=== PATIENT | male | born 1960 | race Caucasian/White ===

== ENCOUNTER 2023-04-27 06:46 | Inpatient (IN) ==
--- NOTE | 2023-04-27 07:10 | Emergency Department Note ---
Impression & Plan Influenza A, Syncope, Nasal fracture, Hypoxia, Closed head injury ED Provider Note Name: SORAYA DIGGS Age: 62 Sex: Male Arrives Via: Ambulance Informant: Patient, , EMS ED Provider: Nehemias Power MD Chief Complaint: Syncope Impression: As per impressions above Medical Decision Making: Healthy 62-year-old gentleman without significant past medical history arrives for evaluation after 2 syncopal episodes this evening. Did strike his nose on what they believed to be a magazine rack. Abrasion over the nose cleaned and does not require sutures. Will dress with bandage. Discussed antibiotics given fracture underneath. CT of the head and cervical spine without acute traumatic findings other than nasal fracture. Chest x-ray mild viral pattern but no lobar infiltrate. Influenza A is positive. Troponin is unremarkable. EKG looks good. Dimer is mildly elevated thus CT of the chest was obtained. No PE noted. Laboratory workup otherwise is unremarkable. Patient is moderately hypoxic on room air. In the setting of multiple syncopal events, mild hypoxia, influenza A he will require hospitalization. Discussed with hospitalist. Suggested antibiotics given the nasal laceration with fracture underneath. No active bleeding no evidence of septal hematoma thus I do not feel that ENT is emergently necessary at this time. Of note tetanus vaccination is up-to-date per patient and Triage/Nursing Notes reviewed by Me Differential:Vasovagal event, dehydration, infection, hypoglycemia, electrolyte abnormalities, cardiac sources, intracerebral event, pulmonary embolism, seizure, toxicologic, neurologic, as well as other pathologies. Vital Signs: reviewed and remarkable for hypoxia on room air Interventions: Tamiflu p.o., normal saline bolus 1 L IV, Unasyn 3 g IV Patient is not septic. Labs:ED labs Reviewed by me and remarkable for influenza A positive, D-dimer elevated. Imagin view chest x-ray as per my interpretation mild viral pattern no congestive failure, lobar infiltrate or effusion appreciated. CT of the head without contrast as per my informal interpretation reveals no intracranial hemorrhage or mass effect. Nasal bridge fracture with moderate displacement. Confirmed by radiologist. CT of the cervical spine without contrast as per my informal interpretation reveals no fracture no dislocation. Confirmed by radiologist. CT of the chest PE study. As per my informal interpretation there is no aortic dissection, PE, pneumothorax. Confirmed by radiologist. EKG:As per my interpretation. Indication syncope. Normal sinus rhythm at 73 bpm QTc of 409. There is no ectopy nor ischemia appreciated. Cardiac/Tele Monitoring: Cardiac Monitoring: An Order was placed for continuous cardiac monitoring. The monitor shows a rate of 70 with a normal sinus rhythm. Consults:[facility] Plan: Disposition:Hospitalization. Condition: Good History of Present Illness: 62-year-old male arrives following an episode of syncope. Patient states he was not feeling well the last 2 days. Mild joint aches and lack of appetite. Yesterday was not feeling well and thus did not eat dinner. States he had gotten up to go to the bathroom around midnight and passed out. He got himself up and went to bed but then again after getting up in the morning he fell again and was unconscious briefly. heard him fall and came to find him. He is awake mildly confused but came to pretty quickly. Abrasion to bridge of nose with mild bleeding. Patient states no known sick contacts. He does work on car engines but does not have any concerns that he had any exposures or carbon monoxide poisoning. Denies any specific headache, neck pain, chest pain, shortness of breath abdominal pain, urinary/bowel symptoms, nausea, vomiting or other concerning signs or symptoms. He has not been having any palpitations or lightheadedness the last few days. He has no previous cardiac history. He has no history of DVT or PE. He has no recent travel. Per EMS patient's oxygen was in the low 80s and he started on 2 L nasal cannula. On arrival he was noted to still be hypoxic on room air with O2 sats of 86%. Patient denies any shortness of breath. Past Medical History: No significant past medical history Home Medications:None Allergies:ndka Vitals:Blood Pressure: 120/68, Pulse 74, RR 18, T 37.8C, O2 86% on RA Physical Exam: GENERAL: Patient is tired appearing and in minimal distress. HEAD: AT/NC NECK: No TTP though notes discomfort lower left neck posteriorly FACE: Abrasion mild bleeding over bridge of nose. Dried blood in bilateral nares. RESPIRATORY: No dyspnea. Clear to auscultation and equal bilaterally. CARDIOVASCULAR: Regular rate and rhythm.No murmur appreciated. GASTROINTESTINAL: Abdomen soft, non-tender, no peritonitis. EXTREMITIES: Normal motion all extremities, no cyanosis, no edema. NEUROLOGIC: Alert and oriented. No focal neurologic deficits appreciated SKIN: No rash, no jaundice, no diaphoresis. PSYCH: Appropriate GCS: 15 ED Course: Times/Reassessments: Patient states he actually feels much better some IV fluids. Continuing to need some nasal cannula O2. Comfortable plan for hospitalization Nehemias Power MD Past Med/Surg History Medical History No significant past medical history Surgical History No significant past surgical history Social History Smoking Status: Never smoker Tobacco Type: Cigarettes Preferred Language: Spanish marital status: Current Living Situation: Spouse current occupational status: employed Feels Safe at Home: Yes Allergies Allergies Allergy/AdvReac Type Severity Reaction Status Date / Time No Known Allergies Allergy Verified 04/24/20 10:53 Home Meds Home Medications Medication Instructions Recorded Confirmed Vitamin D3 1 tab PO DAILY 04/27/23 04/27/23 [id number] 7.5 See Rx Instructions .Route 04/27/23 04/27/23 mg-60 [id number] oral liqd .COMPLEX PRN Other multivitamin 1 tab PO DAILY 04/27/23 04/27/23 Results & Data (ED) Vital Signs Vital Signs - 24 hr 04/27/23 06:54 04/27/23 07:06 04/27/23 08:06 Temperature 37.8 C H Temperature Source Oral Pulse Rate 74 67 Pulse Rate [Right Finger] Pulse Rhythm Pulse Rhythm [Right Finger] Pulse Strength [Right Finger] Respiratory Rate 18 Respiratory Effort / Characteristics Respiratory Depth Respiratory Pattern Blood Pressure 120/68 Blood Pressure [Right Arm] Blood Pressure Mean 85 Blood Pressure Mean [Right Arm] Blood Pressure Position [Right Arm] Pulse Oximetry 96 87 L Oxygen Delivery Method Nasal Cannula Room Air Oxygen Flow Rate 2 Sepsis Recent Fever Within 48 Hours No Sepsis New/Unexplained Change in Mental Status No Sepsis Action Taken by Nursing No Action Required 04/27/23 08:36 04/27/23 08:36 Temperature Temperature Source Pulse Rate 67 Pulse Rate [Right Finger] 66 Pulse Rhythm Regular Pulse Rhythm [Right Finger] Regular Pulse Strength [Right Finger] Normal Respiratory Rate 17 17 Respiratory Effort / Characteristics Non-Labored Spontaneous Respiratory Depth Normal Respiratory Pattern Regular Blood Pressure Blood Pressure [Right Arm] 171/95 H Blood Pressure Mean Blood Pressure Mean [Right Arm] 120 Blood Pressure Position [Right Arm] Lying Pulse Oximetry 98 98 Oxygen Delivery Method Nasal Cannula Room Air Oxygen Flow Rate 2 2 Sepsis Recent Fever Within 48 Hours Sepsis New/Unexplained Change in Mental Status Sepsis Action Taken by Nursing Laboratory Data 04/27/23 06:55 04/27/23 06:55 Lab Results 04/27/23 04/27/23 04/27/23 Range/Units 06:55 07:30 07:33 WBC 6.39 (4.8-10.8) K/ul RBC 5.01 (4.70-6.10) M/uL Hgb 15.4 (14.0-18.0) g/dl Hct 44.5 (42.0-52.0) % MCV 88.8 (80.0-100.0) fL MCH 30.7 (25.0-34.0) pg MCHC 34.6 (32.0-36.0) g/dL RDW Std Deviation 37.9 (36.4-46.3) fL RDW Coeff of Stephen 11.8 (11.5-14.5) % Plt Count 196 (130-400) K/uL MPV 9.5 (9.4-12.4) fL Immature Gran % (Auto) 0.2 % Neut % (Auto) 84.3 % Lymph % (Auto) 6.6 % [place] % (Auto) 8.6 % Eos % (Auto) 0.0 % Baso % (Auto) 0.3 % Neut # (Auto) 5.39 (1.40-6.50) K/uL Lymph # (Auto) 0.42 L (1.20-3.40) K/uL Oldham # (Auto) 0.55 (0.11-0.59) K/uL Eos # (Auto) 0.00 (0.00-0.50) K/uL Baso # (Auto) 0.02 (0.00-0.20) K/uL Immature Gran # (Auto) 0.01 (0.01-0.20) K/uL D-Dimer 710 H* (0-500) ug/L FEU Sodium 138 (136-145) mmol/L Potassium 4.2 (3.5-5.1) mmol/L Chloride 103 (98-107) mmol/L Carbon Dioxide 29 (21-32) mmol/L Anion Gap 6 (3-11) BUN 14 (6-23) mg/dl Creatinine 1.08 (0.6-1.4) mg/dl Est Cr Clr Drug Dosing 71.8 ml/min Est GFR ( Amer) 85.4 ml/min Est GFR (Non-Af Amer) 73.7 ml/min BUN/Creatinine Ratio 13.0 (10-20) Glucose 141 H (70-99(Fasting)) mg/dl Lactate 1.2 (0.4-2.0) mmol/L Calcium 8.7 (8.6-10.3) mg/dl Magnesium 1.9 (1.7-2.4) mg/dl Total Bilirubin 0.5 (0.2-1.0) mg/dl Direct Bilirubin 0.1 (0-0.2) mg/dl AST 23 (13-39) U/L ALT 32 (7-52) U/L Alkaline Phosphatase 55 (34-104) U/L Troponin I High Sens 3.7 (0-20) pg/ml Total Protein 6.9 (6.0-8.3) gm/dl Albumin 4.4 (3.4-5.0) gm/dl Procalcitonin < 0.05 (0-0.5) ng/ml SARS-CoV-2 (PCR) NEGATIVE (Negative) Influenza Type A (PCR) Positive A* (Neg) Influenza Type B (PCR) Negative (Neg) RSV (RT-PCR) Negative (Neg) Administered Medications Discontinued Medications Sodium Chloride (Nss) 1,000 mls @ 999 mls/hr IV .Q1H1M YAQUELIN Stop: 04/27/23 08:15 Last Infusion: 04/27/23 10:30 Dose: Infused Documented By: Admin: 04/27/23 08:02 Dose: 999 mls/hr Documented By: EVIN Ampicillin Sodium/Sulbactam Sodium 3,000 mg/ Sodium Chloride 100 mls @ 200 mls/hr IV NOW STA Stop: 04/27/23 09:18 Last Infusion: 04/27/23 11:34 Dose: Infused Documented By: Admin: 04/27/23 10:23 Dose: 200 mls/hr Documented By: EVIN Ioversol (Optiray 320 125ml) 115 ml IV ONCE ONE Stop: 04/27/23 09:08 Last Admin: 04/27/23 09:08 Dose: 115 ml Documented By: JATIN Oseltamivir Phosphate (Oseltamivir Phosphate 75 Mg Cap) 75 mg PO NOW STA; Protocol Stop: 04/27/23 08:54 Last Admin: 04/27/23 09:36 Dose: 75 mg Documented By: EVIN Imaging Data Radiologist's Impression: Chest X-Ray 04/27/23 07:06 XR chest 1V portable CLINICAL HISTORY: Sepsis. COMPARISON STUDY: Chest radiograph April 24, 2020. FINDINGS: Lung volumes are normal. Lungs are clear. Airspace opacities on prior chest radiograph of April 24, 2020 have resolved. There is no pneumothorax or pleural effusion. Cardiac size is normal. Mediastinal contours are normal. There is no evidence for pulmonary edema. IMPRESSION: No acute cardiopulmonary findings. ACT 112: Negative or not required by law. Electronically signed by: Migue Garcia M.D. 04/27/2023 7:[address] 04/27/23 07:10 CT OF THE CERVICAL SPINE WITHOUT CONTRAST CLINICAL HISTORY: Head trauma with lower posterior neck pain COMPARISON STUDY: Neck CT August 27, 2019. TECHNIQUE: Helical axial images of the cervical spine were obtained without IV contrast. Sagittal and coronal reconstructions were viewed. Automated exposure control was utilized for the study. A dose lowering technique was utilized adhering to the principles of ALARA. FINDINGS: Alignment of the cervical spine is anatomic. Vertebral body heights are maintained. No acute cervical spine fracture or subluxation is present. There is no prevertebral edema. Facet joints are intact. There is moderate multilevel facet arthrosis and degenerative disc disease within the cervical spine. This includes anterior osteophytosis within the cervical spine. Lucencies within anterior osteophytes were present on prior CT of August 27, 2019. IMPRESSION: No acute cervical spine fracture or subluxation. ACT 112: Negative or not required by law. Electronically signed by: Migue Garcia M.D. 04/27/2023 7:[address] 04/27/23 07:10 CT OF THE HEAD WITHOUT CONTRAST CLINICAL HISTORY: Syncope with head injury COMPARISON STUDY: Head CT January 08, 2008. Facial bone CT August 28, 2019. TECHNIQUE: Helical axial images of the head were obtained without IV contrast. Automated exposure control was utilized for the study. A dose lowering technique was utilized adhering to the principles of ALARA. FINDINGS: No acute intracranial hemorrhage, midline shift or mass effect is present. The ventricular system is unremarkable. The basal cisterns are patent. No extra-axial collections are present. There are no findings to suggest acute dural sinus thrombosis or acute territorial infarct. There is no acute calvarial fracture. Nasal contusion is noted with soft tissue gas within the nose. There is an acute comminuted moderately displaced right nasal bone fracture. There is an acute comminuted nondisplaced left nasal bone fracture. IMPRESSION: 1. No acute intracranial findings. 2. No calvarial fracture. 3. Nasal contusion and laceration. Comminuted bilateral nasal bone fractures. The right nasal bone fracture is moderately displaced. ACT 112: Negative or not required by law. Electronically signed by: Migue Garcia M.D. 04/27/2023 7:48 AM Chest CTA 04/27/23 08:49 CT ANGIOGRAPHY OF THE CHEST, PULMONARY EMBOLUS PROTOCOL CLINICAL HISTORY: Syncope, hypoxia, elevated Dimer. Evaluate for pulmonary embolus. COMPARISON STUDY: Chest radiograph April 24, 2020 and April 27, 2023 at 7:24 AM. TECHNIQUE: Following IV administration of 115 mL of Optiray, helical axial images of the chest were obtained utilizing the pulmonary embolus protocol. Maximal intensity projections and sagittal and coronal reformats were viewed on an independent 3D workstation. IV contrast was administered without complication. Automated exposure control was utilized for the study. A dose lowering technique was utilized adhering to the principles of ALARA. CT DOSE: 891.45 mGy.cm FINDINGS: No pulmonary emboli are identified. There is no thoracic aortic dissection. Size of the heart is within normal limits. There is no pericardial effusion. Groundglass opacities and linear densities within the lungs favor atelectasis. There is no consolidation to suggest pneumonia. No acute fractures within the visualized bony thorax are present. There is hepatic steatosis. A 2.8 cm lobulated water attenuation segment 6 hepatic lesion likely reflects a cyst. IMPRESSION: 1. No pulmonary emboli identified. 2. No acute intrathoracic findings. ACT 112: Negative or not required by law. Electronically signed by: Migue Garcia M.D. 04/27/2023 9:26 AM Discharge Plan Visit Data Chief Complaint: Syncope Stated Complaint: SYNCOPE/RESPIRATORY SYMPTOMS ED Provider: Nehemias Power Discharge Problem: Influenza A, Syncope, Nasal fracture, Hypoxia, Closed head injury Discharge Instructions Interventions: ED Discharge Assessment Last Done: 04/27/23 13:01 Discharge Problem: Syncope Qualifiers: Syncope type: unspecified Qualified Code(s): R55 - Syncope and collapse Nasal fracture Qualifiers: Encounter type: initial encounter Fracture type: open Qualified Code(s): S 02.2XXB - Fracture of nasal bones, initial encounter for open fracture Closed head injury Qualifiers: Encounter type: initial encounter Qualified Code(s): S09.90XA - Unspecified injury of head, initial encounter
[2023-04-27] MEDS ORDERED: SODIUM CHLORIDE 0.9% 1,000 ML IV SCH (07:15)
[2023-04-27 07:26] LABS: Basophils # (auto) 0.02 K/uL (0.00-0.20); Basophils % (auto) 0.3 %; Hematocrit (blood only) 44.5 % (42.0-52.0); Hemoglobin 15.4 g/dl (14.0-18.0); Immature Granulocytes # (auto) 0.01 K/uL (0.01-0.20); Immature Granulocytes % (auto) 0.2 %; Lymphocytes # (auto) 0.42 K/uL (1.20-3.40); Lymphocytes % (auto) 6.6 %; Mean Corpuscular Hemoglobin 30.7 pg (25.0-34.0); Mean Corpuscular Hgb Conc 34.6 g/dL (32.0-36.0); Mean Corpuscular Volume 88.8 fL (80.0-100.0); Mean Platelet Volume 9.5 fL (9.4-12.4); Monocytes # (auto) 0.55 K/uL (0.11-0.59); Monocytes % (auto) 8.6 %; Neutrophils # (auto) 5.39 K/uL (1.40-6.50); Neutrophils % (auto) 84.3 %; Platelet Count 196 K/uL (130-400); RDW Coefficient of Variation 11.8 % (11.5-14.5); RDW Standard Deviation 37.9 fL (36.4-46.3); Red Blood Count 5.01 M/uL (4.70-6.10); White Blood Count 6.39 K/ul (4.8-10.8)
[2023-04-27 07:29] LABS: Albumin Level 4.4 gm/dl (3.4-5.0); Bilirubin Direct 0.1 mg/dl (0-0.2); Bilirubin,Total 0.5 mg/dl (0.2-1.0); Calcium 8.7 mg/dl (8.6-10.3); Creatinine Clr Calc Pharmacy 71.8 ml/min; Est GFR (African American) 85.4 ml/min; Est GFR (Non-African American) 73.7 ml/min; Magnesium 1.9 mg/dl (1.7-2.4); Potassium 4.2 mmol/L (3.5-5.1); Total Protein 6.9 gm/dl (6.0-8.3)
[2023-04-27 07:36] LABS: Troponin I High Sensitivity 3.7 pg/ml (0-20)
--- NOTE | 2023-04-27 07:44 | XRay Report ---
XR chest 1V portable CLINICAL HISTORY: Sepsis. COMPARISON STUDY: Chest radiograph April 24, 2020. FINDINGS: Lung volumes are normal. Lungs are clear. Airspace opacities on prior chest radiograph of J anuary 2020 have resolved. There is no pneumothorax or pleural effusion. Cardiac size is normal. M ediastinal contours are normal. There is no evidence for pulmonary edema. IMPRESSION: No acute cardiopulmonary findings. ACT 112: Negative or not required by law. Electronically signed by: Migue Garcia M.D. 04/27/2023 7:43 AM
--- NOTE | 2023-04-27 07:50 | CT Scan Report ---
CT OF THE HEAD WITHOUT CONTRAST CLINICAL HISTORY: Syncope with head injury COMPARISON STUDY: Head CT January 08, 2008. Facial bone CT August 28, 2019. TECHNIQUE: Helical axial images of the head were obtained without IV contrast. Automated exposure con trol was utilized for the study. A dose lowering technique was utilized adhering to the principles o f ALARA. FINDINGS: No acute intracranial hemorrhage, midline shift or mass effect is present. The ventricular system is unremarkable. The basal cisterns are patent. No extra-axial collections are present. There are no findings to suggest acute dural sinus thrombosis or acute territorial infarct. There is no acu te calvarial fracture. Nasal contusion is noted with soft tissue gas within the nose. There is an acu te comminuted moderately displaced right nasal bone fracture. There is an acute comminuted nondisplac ed left nasal bone fracture. IMPRESSION: 1. No acute intracranial findings. 2. No calvarial fracture. 3. Nasal contusion and laceration. Comminuted bilateral nasal bone fractures. The right nasal bone fr acture is moderately displaced. ACT 112: Negative or not required by law. Electronically signed by: Migue Garcia M.D. 04/27/2023 7:48 AM
--- NOTE | 2023-04-27 08:00 | CT Scan Report ---
CT OF THE CERVICAL SPINE WITHOUT CONTRAST CLINICAL HISTORY: Head trauma with lower posterior neck pain COMPARISON STUDY: Neck CT August 27, 2019. TECHNIQUE: Helical axial images of the cervical spine were obtained without IV contrast. Sagittal a nd coronal reconstructions were viewed. Automated exposure control was utilized for the study. A do se lowering technique was utilized adhering to the principles of ALARA. FINDINGS: Alignment of the cervical spine is anatomic. Vertebral body heights are maintained. No acut e cervical spine fracture or subluxation is present. There is no prevertebral edema. Facet joints are intact. There is moderate multilevel facet arthrosis and degenerative disc disease within the cervi [place] spine. This includes anterior osteophytosis within the cervical spine. Lucencies within anterior osteophytes were present on prior CT of August 27, 2019. IMPRESSION: No acute cervical spine fracture or subluxation. ACT 112: Negative or not required by law. Electronically signed by: Migue Garcia M.D. 04/27/2023 7:58 AM
[2023-04-27 08:24] LABS: Influenza B virus by PCR Negative (Neg); RSV by PCR Negative (Neg); SARS CoV2 RNA(COVID-19) Ceph NEGATIVE (Negative)
[2023-04-27 08:30] LABS: Influenza A virus by PCR Positive (Neg)
[2023-04-27 08:47] LABS: D Dimer 710 ug/L FEU (0-500)
[2023-04-27] MEDS ORDERED: AMPICILLIN/SULBACTAM SOD 3,000 MG in SODIUM CHLOR 0.9% MINI-B 100 ML IV STA (08:49)
[2023-04-27] MEDS ORDERED: OSELTAMIVIR PHOSPHATE 75 MG CAP PO STA (08:53)
[2023-04-27] MEDS ORDERED: OPTIRAY 320 125ml IV ONE (09:07)
--- NOTE | 2023-04-27 09:29 | CT Scan Report ---
CT ANGIOGRAPHY OF THE CHEST, PULMONARY EMBOLUS PROTOCOL CLINICAL HISTORY: Syncope, hypoxia, elevated Dimer. Evaluate for pulmonary embolus. COMPARISON STUDY: Chest radiograph April 24, 2020 and April 27, 2023 at 7:24 AM. TECHNIQUE: Following IV administration of 115 mL of Optiray, helical axial images of the chest were o btained utilizing the pulmonary embolus protocol. Maximal intensity projections and sagittal and cor onal reformats were viewed on an independent 3D workstation. IV contrast was administered without co mplication. Automated exposure control was utilized for the study. A dose lowering technique was ut ilized adhering to the principles of ALARA. CT DOSE: 891.45 mGy.cm FINDINGS: No pulmonary emboli are identified. There is no thoracic aortic dissection. Size of the he art is within normal limits. There is no pericardial effusion. Groundglass opacities and linear densi ties within the lungs favor atelectasis. There is no consolidation to suggest pneumonia. No acute fra ctures within the visualized bony thorax are present. There is hepatic steatosis. A 2.8 cm lobulated water attenuation segment 6 hepatic lesion likely reflects a cyst. IMPRESSION: 1. No pulmonary emboli identified. 2. No acute intrathoracic findings. ACT 112: Negative or not required by law. Electronically signed by: Migue Garcia M.D. 04/27/2023 9:26 AM
--- NOTE | 2023-04-27 09:36 | History & Physical Report ---
Date of Service April 27, 2023 Assessment & Plan (1) Syncope: (2) Influenza A: (3) Acute hypoxic respiratory failure: (4) Nasal fracture: (5) Elevated d-dimer: (6) Fatty liver: (7) Hepatic lesion: Plan Pt is a 62yoM with no significant PMHx presenting with 2 syncopal episodes and subsequent nasal fracture in the setting of an influenza infection. Syncope Pt with 2 episodes of syncope overnight Influenza A + Pt notes prior syncopal episodes in setting of COVID infection two years ago Head CT with no noted acute cause, does note comminuted bilateral nasal bone fractures, R nasal bone fracture moderately displaced MRI brain pending EKG with NSR Echo pending IV Fluids Monitor on telemetry Notes that mom has a Hx of atrial fibrillation and now has a pacemaker. States Dad had stents placed. Consider heart monitor for extended period of time/cardiology follow up given prior episodes of syncope in the past in similar setting. Influenza A infection Hypoxia Pt noted to be hypoxic to the 80s Requiring 2L of oxygen, does not use at baseline Influenza A + Chest XRAY with no noted acute process Chest CTA with no acute findings Tamiflu 75mg BID IV Fluids Oxygen supplementation as needed, wean as tolerated Duonebs prn for SOB or wheezing, prn albuterol inhaler Supportive care for Flu infection (mucinex, cough syrup, etc) Nasal Fracture Nasal Contusion/Laceration Pt with syncopal episodes and falls resulting in nasal fracture Head CT with noted comminuted bilateral nasal bone fractures R nasal bone fracture moderately displaced Started on Unasyn in the ED, continue. Consider transition to PO Augmentin Per discussion with ED provider, consider ENT outpt follow up rather than inpatient Elevated D-Dimer D-dimer 710 in the ED Chest CTA with no noted PE Fatty Liver Incidental finding on Chest CTA Liver enzymes wnl Dietary changes encouraged PCP followup Hepatic Lesion Incidental finding on Chest CTA Noted a "2.8 cm lobulated water attenuation segment 6 hepatic lesion" Radiology stating it likely reflects a cyst PCP follow up CODE STATUS: Full code Diet: regular DVT prophylaxis: Lovenox SQ Dispo: Med/Surg with tele History of Present Illness Chief Complaint: Syncope Primary Care Provider: Kobi Flores MD Pt is a 62yoM with no significant PMHx presenting with 2 syncopal episodes and subsequent nasal fracture in the setting of an influenza infection. Hx obtained from pt and present at bedside. Pt states that about 12:30AM he woke up to go to the bathroom and the next thing he knew he was getting up off the floor with blood coming out of his nose. States he cleaned himself up and went back to sleep. Woke up once more at about 5:30AM and then woke up to his yelling. states that she has a granddaughter spending time with them and was upstairs when she heard the thump about 5:30AM. Ran down to see him on the ground and brought him in after. Pt notes that he has been having 2 days of mild symptoms of cough and rhinorhea. notes that he has also being saying that his legs and feet were freezing. Notes that he has been eating and drinking. Last meal was last night at dinner time. Does note that this has happened about 2 years ago when he had covid, where he had syncopal episodes as well. Pt denies recent N/V or diarrhea. Denies SOB or chest pain. States that the oxygen was placed on him cause he was told his oxygen saturations dropped but he does not feel SOB. Denies palpitations. Denies prodromes before his episodes of syncope. Has a significant cardiac family history. Notes that mom has a Hx of atrial fibrillation and now has a pacemaker. States Dad had stents placed. ED Course: tamiflu 75mg, IV Unasyn, IV fluids (1 bag) Allergies Allergy/AdvReac Type Severity Reaction Status Date / Time No Known Allergies Allergy Verified 04/24/20 10:53 Home Medications Medication Instructions Recorded Confirmed Type Vitamin D3 1 tab PO DAILY 04/27/23 04/27/23 History [id number]-acetaminophen 7.5 See Rx Instructions .Route 04/27/23 04/27/23 History mg-60 [id number]/30mL oral liqd .COMPLEX PRN Other multivitamin 1 tab PO DAILY 04/27/23 04/27/23 History Past Med/Surg History Medical History No significant past medical history Surgical History No significant past surgical history Social History Smoking Status: Never smoker Tobacco Type: Cigarettes Preferred Language: Tongan marital status: Current Living Situation: Spouse current occupational status: employed Feels Safe at Home: Yes Review of Systems Review of Systems: All systems reviewed & are unremarkable except as noted in HPI & below Physical Exam Physical Exam: General: Alert, oriented. No acute distress Skin: nasal contusion noted with swelling Psych: Appropriate mood and affect Neuro: No gross deficits while laying and sitting up in bed HEENT: nasal contusion noted with swelling, nasal cannula comfortably inserted in nares Chest: Nontender to palpation. CV: RRR Resp: Breath sounds clear bilaterally, no increased effort of breathing. Abdomen: Soft, nontender, nondistended. Extremities: No edema in lower extremities bilaterally. Results & Data Results & Data Vital Signs (Past 12 Hours) Vital Signs Temp Pulse Pulse Resp BP BP Pulse Ox 04/27/23 08:36 67 17 98 04/27/23 08:36 66 17 171/95 H 98 04/27/23 08:06 67 04/27/23 07:06 87 L 04/27/23 06:54 37.8 C H 74 18 120/68 96 O2 Del Method O2 Flow Rate 04/27/23 08:36 Room Air 2 04/27/23 08:36 Nasal Cannula 2 04/27/23 08:06 04/27/23 07:06 Room Air 04/27/23 06:54 Nasal Cannula 2 Diagnostic Findings Chest X-Ray 04/27/23 07:06 XR chest 1V portable CLINICAL HISTORY: Sepsis. COMPARISON STUDY: Chest radiograph April 24, 2020. FINDINGS: Lung volumes are normal. Lungs are clear. Airspace opacities on prior chest radiograph of April 24, 2020 have resolved. There is no pneumothorax or pleural effusion. Cardiac size is normal. Mediastinal contours are normal. There is no evidence for pulmonary edema. IMPRESSION: No acute cardiopulmonary findings. ACT 112: Negative or not required by law. Electronically signed by: Migue Garcia M.D. 04/27/2023 7:[address] 04/27/23 07:10 CT OF THE CERVICAL SPINE WITHOUT CONTRAST CLINICAL HISTORY: Head trauma with lower posterior neck pain COMPARISON STUDY: Neck CT August 27, 2019. TECHNIQUE: Helical axial images of the cervical spine were obtained without IV contrast. Sagittal and coronal reconstructions were viewed. Automated exposure control was utilized for the study. A dose lowering technique was utilized adhering to the principles of ALARA. FINDINGS: Alignment of the cervical spine is anatomic. Vertebral body heights are maintained. No acute cervical spine fracture or subluxation is present. There is no prevertebral edema. Facet joints are intact. There is moderate multilevel facet arthrosis and degenerative disc disease within the cervical spine. This includes anterior osteophytosis within the cervical spine. Lucencies within anterior osteophytes were present on prior CT of August 27, 2019. IMPRESSION: No acute cervical spine fracture or subluxation. ACT 112: Negative or not required by law. Electronically signed by: Migue Garcia M.D. 04/27/2023 7:[address] 04/27/23 07:10 CT OF THE HEAD WITHOUT CONTRAST CLINICAL HISTORY: Syncope with head injury COMPARISON STUDY: Head CT January 08, 2008. Facial bone CT August 28, 2019. TECHNIQUE: Helical axial images of the head were obtained without IV contrast. Automated exposure control was utilized for the study. A dose lowering technique was utilized adhering to the principles of ALARA. FINDINGS: No acute intracranial hemorrhage, midline shift or mass effect is present. The ventricular system is unremarkable. The basal cisterns are patent. No extra-axial collections are present. There are no findings to suggest acute dural sinus thrombosis or acute territorial infarct. There is no acute calvarial fracture. Nasal contusion is noted with soft tissue gas within the nose. There is an acute comminuted moderately displaced right nasal bone fracture. There is an acute comminuted nondisplaced left nasal bone fracture. IMPRESSION: 1. No acute intracranial findings. 2. No calvarial fracture. 3. Nasal contusion and laceration. Comminuted bilateral nasal bone fractures. The right nasal bone fracture is moderately displaced. ACT 112: Negative or not required by law. Electronically signed by: Migue Garcia M.D. 04/27/2023 7:48 AM Chest CTA 04/27/23 08:49 CT ANGIOGRAPHY OF THE CHEST, PULMONARY EMBOLUS PROTOCOL CLINICAL HISTORY: Syncope, hypoxia, elevated Dimer. Evaluate for pulmonary embolus. COMPARISON STUDY: Chest radiograph April 24, 2020 and April 27, 2023 at 7:24 AM. TECHNIQUE: Following IV administration of 115 mL of Optiray, helical axial images of the chest were obtained utilizing the pulmonary embolus protocol. Maximal intensity projections and sagittal and coronal reformats were viewed on an independent 3D workstation. IV contrast was administered without complication. Automated exposure control was utilized for the study. A dose lowering technique was utilized adhering to the principles of ALARA. CT DOSE: 891.45 mGy.cm FINDINGS: No pulmonary emboli are identified. There is no thoracic aortic dissection. Size of the heart is within normal limits. There is no pericardial effusion. Groundglass opacities and linear densities within the lungs favor atelectasis. There is no consolidation to suggest pneumonia. No acute fractures within the visualized bony thorax are present. There is hepatic steatosis. A 2.8 cm lobulated water attenuation segment 6 hepatic lesion likely reflects a cyst. IMPRESSION: 1. No pulmonary emboli identified. 2. No acute intrathoracic findings. ACT 112: Negative or not required by law. Electronically signed by: Migue Garcia M.D. 04/27/2023 9:26 AM
[2023-04-27 11:44] LABS: Appearance Urine Clear (Clear); Bilirubin Urine Negative (Negative); Blood Urine Negative (Negative); Color Urine Yellow; Glucose Urine UA Negative (Negative); Ketones Urine Negative (Negative); Leukocyte Esterase Urine Negative (Negative); Nitrite Urine Negative (Negative); Protein Urine Negative (Negative); Specific Gravity Urine > 1.045 (1.000-1.030); Urobilinogen Urine Negative (Negative); pH Urine 6.5 (4.5-7.5)
[2023-04-27] MEDS ORDERED: ALBUTEROL HFA 8 GM INHALER INH PRN (13:01)
[2023-04-27] MEDS ORDERED: ACETAMINOPHEN 500 MG TAB PO PRN (13:01)
[2023-04-27] MEDS ORDERED: guaiFENesin/DEXTROM SYRUP 100MG/10MG 5ML UDC PO PRN (13:01)
[2023-04-27] MEDS ORDERED: ALBUT/IPRATROP 3MG/0.5MG NEB 3 ML VIAL NEB PRN (13:01)
[2023-04-27] MEDS ORDERED: GADOBUTROL 65ML VIAL IV ONE (14:03)
--- NOTE | 2023-04-27 14:18 | Magnetic Resonance Report ---
MRI OF THE BRAIN WITHOUT AND WITH IV CONTRAST CLINICAL HISTORY: Syncope. Headaches. Dizziness. Fall COMPARISON STUDY: Head CT January 08, [address] performed earlier today TECHNIQUE: Utilizing a 1.5 Lorrie magnet and dedicated coil, multiplanar, multiecho imaging of the br ain was performed pre and postcontrast administration. IV administration of 7.5 mL of Gadavist contr ast was uneventful. FINDINGS: There are no foci of restricted diffusion to suggest acute infarct. No acute intracranial h emorrhage, midline shift or mass effect is present. Brain volume is normal. Ventricular system is nor mal. Basal cisterns are patent. There are no extra-axial collections. Flow-voids for the major intrac ranial vessels are present. There is no intracranial mass or pathologic enhancement. 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 Nasal contusion and n rhiannon bone fractures are better depicted on the head CT. IMPRESSION: Unremarkable MRI of the brain. No acute findings. ACT 112: Negative or not required by law. Electronically signed by: Migue Garcia M.D. 04/27/2023 2:16 PM
[2023-04-27] MEDS: ENOXAPARIN INJ 40 MG/0.4 ML SYR SQ SCH (15:36)
[2023-04-27] MEDS: AMPICILLIN/SULBACTAM SOD 3,000 MG in SODIUM CHLOR 0.9% MINI-B 100 ML IV SCH ×2 (15:37→21:41)
[2023-04-27] MEDS: SODIUM CHLORIDE 0.9% 1,000 ML IV SCH (15:37)
[2023-04-27] MEDS: guaiFENesin 600 MG TABCR PO SCH (21:42)
[2023-04-27] MEDS: OSELTAMIVIR PHOSPHATE 75 MG CAP PO SCH (21:42)
[2023-04-28] MEDS: SODIUM CHLORIDE 0.9% 1,000 ML IV SCH ×2 (02:01→13:51)
[2023-04-28] MEDS: AMPICILLIN/SULBACTAM SOD 3,000 MG in SODIUM CHLOR 0.9% MINI-B 100 ML IV SCH ×4 (02:03→19:36)
[2023-04-28 04:29] LABS: Hematocrit (blood only) 42.2 % (42.0-52.0); Hemoglobin 14.5 g/dl (14.0-18.0); Mean Corpuscular Hemoglobin 30.6 pg (25.0-34.0); Mean Corpuscular Hgb Conc 34.4 g/dL (32.0-36.0); Mean Platelet Volume 9.9 fL (9.4-12.4); Platelet Count 182 K/uL (130-400); RDW Coefficient of Variation 11.9 % (11.5-14.5); RDW Standard Deviation 38.5 fL (36.4-46.3); Red Blood Count 4.74 M/uL (4.70-6.10); White Blood Count 4.41 K/ul (4.8-10.8)
[2023-04-28 04:54] LABS: Albumin Globulin Ratio 1.7 (0.9-2); Albumin Level 3.9 gm/dl (3.4-5.0); BUN Creatinine Ratio 16.9 (10-20); Bilirubin,Total 0.6 mg/dl (0.2-1.0); Creatinine Clr Calc Pharmacy 100.7 ml/min; Est GFR (African American) 113.5 ml/min; Est GFR (Non-African American) 97.9 ml/min; Globulin 2.3 gm/dl (2.5-4.0); Magnesium 1.9 mg/dl (1.7-2.4); Phosphorus 2.8 mg/dl (2.5-4.9); Potassium 3.7 mmol/L (3.5-5.1); Total Protein 6.2 gm/dl (6.0-8.3)
[2023-04-28] MEDS: guaiFENesin 600 MG TABCR PO SCH ×2 (08:36→20:09)
[2023-04-28] MEDS: OSELTAMIVIR PHOSPHATE 75 MG CAP PO SCH ×2 (08:36→20:09)
[2023-04-28] MEDS: ENOXAPARIN INJ 40 MG/0.4 ML SYR SQ SCH (13:57)
--- NOTE | 2023-04-28 14:15 | Hospitalist Progress Note ---
Date of Service April 28, 2023 Assessment & Plan (1) Syncope: (2) Influenza A: (3) Acute hypoxic respiratory failure: (4) Nasal fracture: (5) Elevated d-dimer: (6) Fatty liver: (7) Hepatic lesion: Plan Pt is a 62yoM with no significant PMHx presenting with 2 syncopal episodes and subsequent nasal fracture in the setting of an influenza infection. Syncope-likely secondary to dehydration and orthostasis Pt with 2 episodes of syncope overnight Influenza A + Pt notes prior syncopal episodes in setting of COVID infection two years ago Head CT with no noted acute cause, does note comminuted bilateral nasal bone fractures, R nasal bone fracture moderately displaced MRI -unremarkable and no acute findings EKG with NSR Echo showed-mild concentric LVH, no wall motion abnormalities, EF 60 to 65% and there is no valvular pathology IV Fluids Monitor on telemetry-no arrhythmia noted Notes that mom has a Hx of atrial fibrillation and now has a pacemaker. States Dad had stents placed. Consider heart monitor for extended period of time/cardiology follow up given prior episodes of syncope in the past in similar setting. Clinically much better Will get orthostatic vitals Continue with IV fluid and was advised to drink more fluid Likely discharge tomorrow Influenza A infection Hypoxia Pt noted to be hypoxic to the 80s Requiring 2L of oxygen, does not use at baseline Influenza A + Chest XRAY with no noted acute process Chest CTA with no acute findings Tamiflu 75mg BID Oxygen supplementation as needed, wean as tolerated Duonebs prn for SOB or wheezing, prn albuterol inhaler Supportive care for Flu infection (mucinex, cough syrup, etc) Nasal Fracture Nasal Contusion/Laceration Pt with syncopal episodes and falls resulting in nasal fracture Head CT with noted comminuted bilateral nasal bone fractures R nasal bone fracture moderately displaced Started on Unasyn in the ED, continue. Consider transition to PO Augmentin Per discussion with ED provider, consider ENT outpt follow up rather than inpatient We will continue current antibiotic Elevated D-Dimer D-dimer 710 in the ED Chest CTA with no noted PE Fatty Liver Incidental finding on Chest CTA Liver enzymes wnl Dietary changes encouraged PCP followup Hepatic Lesion Incidental finding on Chest CTA Noted a "2.8 cm lobulated water attenuation segment 6 hepatic lesion" Radiology stating it likely reflects a cyst PCP follow up CODE STATUS: Full code Diet: regular DVT prophylaxis: Lovenox SQ Dispo: Med/Surg with tele Admission and Anticipated Discharge Date Admission Date: April 27, 2023 Subjective 04/28/2023 The patient was seen and examined in emergency room He has been feeling much better and denies any symptoms of cough, shortness of breath He has been out of bed yet Review of Systems Review of Systems: All systems reviewed and are unremarkable except as noted below Physical Exam Physical Exam: Lying in bed comfortably Constitutional: well developed, well nourished, + ill appearing and + obese Eyes: PERRL, conjunctivae normal, anicteric sclerae ENMT: external ear and nose normal, oropharynx normal Nose: + external nose abnormality (Bridge of the nose is bruised with a small wound) Neck: trachea midline, no thyromegaly Respiratory: no respiratory distress Auscultation: lungs clear to auscultation bilaterally Cardiovascular: Rate/Rhythm: regular rate and regular rhythm; not tachycardic Heart Sounds: normal S1 and normal S2; no murmur Extremities: no edema Gastrointestinal (Abdomen): Inspection/Auscultation: normal bowel sounds; abdomen not distended Percussion/Palpation: abdomen soft; abdomen nontender Musculoskeletal: No acute arthritis involving any joint Neurologic: normal touch/pain/proprioception and moves all extremities; no focal motor deficits Psychiatric: A+Ox3, euthymic affect Lymphatic: no cervical or axillary lymphadenopathy Results & Data Results & Data Vital Signs (Past 12 Hours) Vital Signs Pulse Pulse Resp BP Pulse Ox O2 Del Method 04/28/23 08:30 64 20 150/95 H 97 Room Air 04/28/23 07:54 69 Laboratory Results Short CBC 04/28/23 Range/Units 03:33 WBC 4.41 L (4.8-10.8) K/ul Hgb 14.5 (14.0-18.0) g/dl Hct 42.2 (42.0-52.0) % Plt Count 182 (130-400) K/uL BMP 04/28/23 03:33 Sodium 137 Potassium 3.7 Chloride 104 Carbon Dioxide 27 BUN 13 Creatinine 0.77 D Glucose 110 H Calcium 8.0 L Liver Function 04/28/23 Range/Units 03:33 Total Bilirubin 0.6 (0.2-1.0) mg/dl AST 22 (13-39) U/L ALT 27 (7-52) U/L Alkaline Phosphatase 48 (34-104) U/L Albumin 3.9 (3.4-5.0) gm/dl Medications Administered Current Inpatient Medications Acetaminophen (Acetaminophen 500 Mg Tab) 1,000 mg PO Q8H PRN PRN Reason: Pain or Fever Stop: 05/27/23 13:00 Albuterol (Albut/Ipratrop 3mg/0.5mg Neb 3 Ml Vial) 3 ml NEB Q4R PRN; Protocol PRN Reason: Shortness Of Breath Or Wheezing Stop: 05/27/23 13:00 Albuterol (Albuterol Hfa 8 Gm Inhaler) 2 puffs INH Q6R PRN; Protocol PRN Reason: Shortness Of Breath Or Wheezing Stop: 05/27/23 13:00 Enoxaparin Sodium (Enoxaparin Inj 40 Mg/0.4 Ml Syr) 40 mg SQ Q24H [facility] Stop: 05/27/23 13:00 Last Admin: 04/28/23 13:57 Dose: Not Given Guaifenesin (Guaifenesin 600 Mg Tabcr) 1,200 mg PO Q12 [facility] Stop: 05/27/23 20:59 Last Admin: 04/28/23 08:36 Dose: 1,200 mg Guaifenesin/Dextromethorphan (Guaifenesin/Dextrom Syrup 100mg/10mg 5ml Udc) 5 ml PO Q6H PRN PRN Reason: Cough Stop: 05/27/23 13:00 Sodium Chloride (Nss) 1,000 mls @ 80 mls/hr IV .[id number] [facility] Stop: 05/27/23 13:00 Last Admin: 04/28/23 13:51 Dose: 80 mls/hr Ampicillin Sodium/Sulbactam Sodium 3,000 mg/ Sodium Chloride 100 mls @ 100 mls/hr IV Q6H [facility] Stop: 05/07/23 13:59 Last Admin: 04/28/23 13:51 Dose: 100 mls/hr Oseltamivir Phosphate (Oseltamivir Phosphate 75 Mg Cap) 75 mg PO BID [facility]; Protocol Stop: 05/02/23 20:59 Last Admin: 04/28/23 08:36 Dose: 75 mg (1) Syncope Syncope type: unspecified Qualified Code(s): R55 - Syncope and collapse (4) Nasal fracture Encounter type: initial encounter Fracture type: open Qualified Code(s): S02.2XXB - Fracture of nasal bones, initial encounter for open fracture
--- NOTE | 2023-04-28 22:10 | Electrocardiogram Report ---
Test Reason : Blood Pressure : / mmHG Vent. Rate : 073 BPM Atrial Rate : 073 BPM P-R Int : 166 ms QRS Dur : 090 ms QT Int : 372 ms P-R-T Axes : 052 014 034 degrees QTc Int : 409 ms Normal sinus rhythm Normal ECG When compared with ECG of 08-JAN-2008 19:52, No significant change was found Confirmed by Jose Carvalho ([id number]) on 04/28/2023 10:10:37 PM Referred By: REFERRED SELF Confirmed By:Jose Carvalho
[2023-04-29] MEDS: AMPICILLIN/SULBACTAM SOD 3,000 MG in SODIUM CHLOR 0.9% MINI-B 100 ML IV SCH ×3 (02:46→14:05)
[2023-04-29 04:49] LABS: Basophils # (auto) 0.01 K/uL (0.00-0.20); Basophils % (auto) 0.3 %; Eosinophils # (auto) 0.04 K/uL (0.00-0.50); Eosinophils % (auto) 1.4 %; Hematocrit (blood only) 44.3 % (42.0-52.0); Hemoglobin 14.7 g/dl (14.0-18.0); Immature Granulocytes # (auto) 0.01 K/uL (0.01-0.20); Immature Granulocytes % (auto) 0.3 %; Lymphocytes # (auto) 1.11 K/uL (1.20-3.40); Lymphocytes % (auto) 38.4 %; Mean Corpuscular Hemoglobin 30.1 pg (25.0-34.0); Mean Corpuscular Hgb Conc 33.2 g/dL (32.0-36.0); Mean Corpuscular Volume 90.8 fL (80.0-100.0); Mean Platelet Volume 9.8 fL (9.4-12.4); Monocytes # (auto) 0.34 K/uL (0.11-0.59); Monocytes % (auto) 11.8 %; Neutrophils # (auto) 1.38 K/uL (1.40-6.50); Neutrophils % (auto) 47.8 %; Platelet Count 157 K/uL (130-400); RDW Coefficient of Variation 11.8 % (11.5-14.5); RDW Standard Deviation 39.2 fL (36.4-46.3); Red Blood Count 4.88 M/uL (4.70-6.10); White Blood Count 2.89 K/ul (4.8-10.8)
[2023-04-29 05:04] LABS: BUN Creatinine Ratio 21.6 (10-20); Calcium 8.1 mg/dl (8.6-10.3); Creatinine Clr Calc Pharmacy 88.2 ml/min; Est GFR (African American) 107.5 ml/min; Est GFR (Non-African American) 92.7 ml/min; Magnesium 2.1 mg/dl (1.7-2.4); Phosphorus 2.5 mg/dl (2.5-4.9); Potassium 3.9 mmol/L (3.5-5.1)
[2023-04-29] MEDS: OSELTAMIVIR PHOSPHATE 75 MG CAP PO SCH (08:33)
[2023-04-29] MEDS: guaiFENesin 600 MG TABCR PO SCH (08:34)
[2023-04-29] MEDS: ENOXAPARIN INJ 40 MG/0.4 ML SYR SQ SCH (12:55)
--- NOTE | 2023-04-29 13:14 | Hospitalist Progress Note ---
Date of Service April 29, 2023 Assessment & Plan (1) Syncope: (2) Influenza A: (3) Acute hypoxic respiratory failure: (4) Nasal fracture: (5) Elevated d-dimer: (6) Fatty liver: (7) Hepatic lesion: Plan Pt is a 62yoM with no significant PMHx presenting with 2 syncopal episodes and subsequent nasal fracture in the setting of an influenza infection. Syncope-likely secondary to dehydration and orthostasis Pt with 2 episodes of syncope overnight Influenza A + Pt notes prior syncopal episodes in setting of COVID infection two years ago Head CT with no noted acute cause, does note comminuted bilateral nasal bone fractures, R nasal bone fracture moderately displaced MRI -unremarkable and no acute findings EKG with NSR Echo showed-mild concentric LVH, no wall motion abnormalities, EF 60 to 65% and there is no valvular pathology IV Fluids Monitor on telemetry-no arrhythmia noted Notes that mom has a Hx of atrial fibrillation and now has a pacemaker. States Dad had stents placed. Consider heart monitor for extended period of time/cardiology follow up given prior episodes of syncope in the past in similar setting. Clinically much better Will get orthostatic vitals Continue with IV fluid and was advised to drink more fluid Blood pressure was noted to be high this morning without any symptoms His orthostatic vitals did not show any high blood pressure and did not show any evidence of orthostasis Blood pressure lying 149/89 with heart rate 63, sitting 137/91 with heart rate 67 and standing 140/90 with heart rate 67 and no symptoms He has been ambulating without any difficulties and does not have any respiratory symptoms from influenza A infection He will be discharged home this afternoon and will have a Holter as an outpatient Influenza A infection Hypoxia Pt noted to be hypoxic to the 80s Requiring 2L of oxygen, does not use at baseline Influenza A + Chest XRAY with no noted acute process Chest CTA with no acute findings Tamiflu 75mg BID Oxygen supplementation as needed, wean as tolerated Duonebs prn for SOB or wheezing, prn albuterol inhaler Supportive care for Flu infection (mucinex, cough syrup, etc) No respiratory symptoms Nasal Fracture Nasal Contusion/Laceration Pt with syncopal episodes and falls resulting in nasal fracture Head CT with noted comminuted bilateral nasal bone fractures R nasal bone fracture moderately displaced Started on Unasyn in the ED, continue. Consider transition to PO Augmentin Per discussion with ED provider, consider ENT outpt follow up rather than inpatient We will continue current antibiotic Will give Augmentin for a total of 7 days Elevated D-Dimer D-dimer 710 in the ED Chest CTA with no noted PE Fatty Liver Incidental finding on Chest CTA Liver enzymes wnl Dietary changes encouraged PCP followup Hepatic Lesion Incidental finding on Chest CTA Noted a "2.8 cm lobulated water attenuation segment 6 hepatic lesion" Radiology stating it likely reflects a cyst PCP follow up CODE STATUS: Full code Diet: regular DVT prophylaxis: Lovenox SQ Dispo: Med/Surg with tele Admission and Anticipated Discharge Date Admission Date: April 27, 2023 Subjective 04/28/2023 The patient was seen and examined in emergency room He has been feeling much better and denies any symptoms of cough, shortness of breath He has been out of bed yet 04/29/2023 The patient was seen and examined in emergency room in presence of the He has been feeling much better and denies any more dizziness Does not have any cough and were shortness of breath He has been ambulating in the room without any difficulties He will be discharged home this afternoon Review of Systems Review of Systems: All systems reviewed and are unremarkable except as noted below Physical Exam Physical Exam: Lying in bed comfortably Constitutional: well developed, well nourished, + ill appearing and + obese Eyes: PERRL, conjunctivae normal, anicteric sclerae ENMT: external ear and nose normal, oropharynx normal Nose: + external nose abnormality (Bridge of the nose is bruised with a small wound) Neck: trachea midline, no thyromegaly Respiratory: no respiratory distress Auscultation: lungs clear to auscultation bilaterally Cardiovascular: Rate/Rhythm: regular rate and regular rhythm; not tachycardic Heart Sounds: normal S1 and normal S2; no murmur Extremities: no edema Gastrointestinal (Abdomen): Inspection/Auscultation: normal bowel sounds; abdomen not distended Percussion/Palpation: abdomen soft; abdomen nontender Neurologic: normal touch/pain/proprioception and moves all extremities; no focal motor deficits Psychiatric: A+Ox3, euthymic affect Lymphatic: no cervical or axillary lymphadenopathy Results & Data Results & Data Vital Signs (Past 12 Hours) Vital Signs Pulse Resp BP Pulse Ox O2 Del Method O2 Flow Rate 04/29/23 09:00 62 13 170/116 H 98 01/08/24 09:00 180/113 H 04/29/23 08:36 61 04/29/23 08:01 62 12 96 04/29/23 08:01 160/113 H 04/29/23 08:00 52 L 15 97 04/29/23 07:00 52 L 13 99 04/29/23 07:00 136/75 04/29/23 06:31 58 L 14 96 04/29/23 06:31 161/101 H 04/29/23 06:00 51 L 13 96 Nasal Cannula 2 04/29/23 05:00 55 L 14 138/72 97 Nasal Cannula 2 04/29/23 03:00 55 L 14 134/73 97 Nasal Cannula 2 04/29/23 02:00 54 L 21 129/101 H 95 Nasal Cannula 2 Laboratory Results Short CBC 04/29/23 Range/Units 03:38 WBC 2.89 L (4.8-10.8) K/ul Hgb 14.7 (14.0-18.0) g/dl Hct 44.3 (42.0-52.0) % Plt Count 157 (130-400) K/uL BMP 04/29/23 03:38 Sodium 140 Potassium 3.9 Chloride 107 Carbon Dioxide 27 BUN 19 Creatinine 0.88 Glucose 85 Calcium 8.1 L Medications Administered Current Inpatient Medications Acetaminophen (Acetaminophen 500 Mg Tab) 1,000 mg PO Q8H PRN PRN Reason: Pain or Fever Stop: 05/27/23 13:00 Albuterol (Albut/Ipratrop 3mg/0.5mg Neb 3 Ml Vial) 3 ml NEB Q4R PRN; Protocol PRN Reason: Shortness Of Breath Or Wheezing Stop: 05/27/23 13:00 Albuterol (Albuterol Hfa 8 Gm Inhaler) 2 puffs INH Q6R PRN; Protocol PRN Reason: Shortness Of Breath Or Wheezing Stop: 05/27/23 13:00 Enoxaparin Sodium (Enoxaparin Inj 40 Mg/0.4 Ml Syr) 40 mg SQ Q24H AYQUELIN Stop: 05/27/23 13:00 Last Admin: 04/29/23 12:55 Dose: Not Given Guaifenesin (Guaifenesin 600 Mg Tabcr) 1,200 mg PO Q12 YAQUELIN Stop: 05/27/23 20:59 Last Admin: 04/29/23 08:34 Dose: 1,200 mg Guaifenesin/Dextromethorphan (Guaifenesin/Dextrom Syrup 100mg/10mg 5ml Udc) 5 ml PO Q6H PRN PRN Reason: Cough Stop: 05/27/23 13:00 Ampicillin Sodium/Sulbactam Sodium 3,000 mg/ Sodium Chloride 100 mls @ 100 mls/hr IV Q6H YAQUELIN Stop: 05/07/23 13:59 Last Infusion: 04/29/23 09:50 Dose: Infused Oseltamivir Phosphate (Oseltamivir Phosphate 75 Mg Cap) 75 mg PO BID [facility]; Protocol Stop: 05/02/23 20:59 Last Admin: 04/29/23 08:33 Dose: 75 mg (1) Syncope Syncope type: unspecified Qualified Code(s): R55 - Syncope and collapse (4) Nasal fracture Encounter type: initial encounter Fracture type: open Qualified Code(s): S02.2XXB - Fracture of nasal bones, initial encounter for open fracture
--- NOTE | 2023-04-30 10:13 | Discharge Summary ---
Date of Service April 29, 2023 Admission HPI Per Admitting Provider Pt is a 62yoM with no significant PMHx presenting with 2 syncopal episodes and subsequent nasal fracture in the setting of an influenza infection. Hx obtained from pt and present at bedside. Pt states that about 12:30AM he woke up to go to the bathroom and the next thing he knew he was getting up off the floor with blood coming out of his nose. States he cleaned himself up and went back to sleep. Woke up once more at about 5:30AM and then woke up to his yelling. states that she has a granddaughter spending time with them and was upstairs when she heard the thump about 5:30AM. Ran down to see him on the ground and brought him in after. Pt notes that he has been having 2 days of mild symptoms of cough and rhinorhea. notes that he has also being saying that his legs and feet were freezing. Notes that he has been eating and drinking. Last meal was last night at dinner time. Does note that this has happened about 2 years ago when he had covid, where he had syncopal episodes as well. Pt denies recent N/V or diarrhea. Denies SOB or chest pain. States that the oxygen was placed on him cause he was told his oxygen saturations dropped but he does not feel SOB. Denies palpitations. Denies prodromes before his episodes of syncope. Has a significant cardiac family history. Notes that mom has a Hx of atrial fibrillation and now has a pacemaker. States Dad had stents placed. ED Course: tamiflu 75mg, IV Unasyn, IV fluids (1 bag) Admission Exam Per Admitting Provider Physical Exam: General: Alert, oriented. No acute distress Skin: nasal contusion noted with swelling Psych: Appropriate mood and affect Neuro: No gross deficits while laying and sitting up in bed HEENT: nasal contusion noted with swelling, nasal cannula comfortably inserted in nares Chest: Nontender to palpation. CV: RRR Resp: Breath sounds clear bilaterally, no increased effort of breathing. Abdomen: Soft, nontender, nondistended. Extremities: No edema in lower extremities bilaterally. Principal Diagnosis Syncope with a fall, bridge of the nose injury, influenza A Discharge Exam Lying in bed comfortably Constitutional well developed, well nourished, + ill appearing and + obese Eyes PERRL, conjunctivae normal, anicteric sclerae ENMT external ear and nose normal, oropharynx normal Nose: + external nose abnormality (Bridge of the nose is bruised with a small wound) Neck trachea midline, no thyromegaly Respiratory no respiratory distress Auscultation: lungs clear to auscultation bilaterally Cardiovascular Rate/Rhythm: regular rate and regular rhythm; not tachycardic Heart Sounds: normal S1 and normal S2; no murmur Extremities: no edema Gastrointestinal (Abdomen) Inspection/Auscultation: normal bowel sounds; abdomen not distended Percussion/Palpation: abdomen soft; abdomen nontender Neurologic normal touch/pain/proprioception and moves all extremities; no focal motor deficits Psychiatric A+Ox3, euthymic affect Lymphatic no cervical or axillary lymphadenopathy Discharge Data Allergies Allergy/AdvReac Type Severity Reaction Status Date / Time No Known Allergies Allergy Verified 04/24/20 10:53 Consultations 04/27/23 09:02 ED Decision to Admit Stat Ordered Studies 04/27/23 07:10 CT head/brain wo con Stat CT neck [CT cervical spine wo con] Stat 04/27/23 08:49 CT angio chest PE protocol Stat 04/27/23 13:01 MRI Brain [MR brain wo/w con] Routine Hospital Course (1) Syncope: (2) Influenza A: (3) Acute hypoxic respiratory failure: (4) Nasal fracture: (5) Elevated d-dimer: (6) Fatty liver: (7) Hepatic lesion: Plan Pt is a 62yoM with no significant PMHx presenting with 2 syncopal episodes and subsequent nasal fracture in the setting of an influenza infection. Syncope-likely secondary to dehydration and orthostasis Pt with 2 episodes of syncope overnight Influenza A + Pt notes prior syncopal episodes in setting of COVID infection two years ago Head CT with no noted acute cause, does note comminuted bilateral nasal bone fractures, R nasal bone fracture moderately displaced MRI -unremarkable and no acute findings EKG with NSR Echo showed-mild concentric LVH, no wall motion abnormalities, EF 60 to 65% and there is no valvular pathology IV Fluids Monitor on telemetry-no arrhythmia noted Notes that mom has a Hx of atrial fibrillation and now has a pacemaker. States Dad had stents placed. Consider heart monitor for extended period of time/cardiology follow up given prior episodes of syncope in the past in similar setting. Clinically much better Will get orthostatic vitals Continue with IV fluid and was advised to drink more fluid Blood pressure was noted to be high this morning without any symptoms His orthostatic vitals did not show any high blood pressure and did not show any evidence of orthostasis Blood pressure lying 149/89 with heart rate 63, sitting 137/91 with heart rate 67 and standing 140/90 with heart rate 67 and no symptoms He has been ambulating without any difficulties and does not have any respiratory symptoms from influenza A infection He will be discharged home this afternoon and will have a Holter as an outpatient Influenza A infection Hypoxia Pt noted to be hypoxic to the 80s Requiring 2L of oxygen, does not use at baseline Influenza A + Chest XRAY with no noted acute process Chest CTA with no acute findings Tamiflu 75mg BID Oxygen supplementation as needed, wean as tolerated Duonebs prn for SOB or wheezing, prn albuterol inhaler Supportive care for Flu infection (mucinex, cough syrup, etc) No respiratory symptoms Nasal Fracture Nasal Contusion/Laceration Pt with syncopal episodes and falls resulting in nasal fracture Head CT with noted comminuted bilateral nasal bone fractures R nasal bone fracture moderately displaced Started on Unasyn in the ED, continue. Consider transition to PO Augmentin Per discussion with ED provider, consider ENT outpt follow up rather than inpatient We will continue current antibiotic Will give Augmentin for a total of 7 days Elevated D-Dimer D-dimer 710 in the ED Chest CTA with no noted PE Fatty Liver Incidental finding on Chest CTA Liver enzymes wnl Dietary changes encouraged PCP followup Hepatic Lesion Incidental finding on Chest CTA Noted a "2.8 cm lobulated water attenuation segment 6 hepatic lesion" Radiology stating it likely reflects a cyst PCP follow up CODE STATUS: Full code Diet: regular DVT prophylaxis: Lovenox SQ Dispo: Med/Surg with tele Total Time Total Time Spent Total Time Spent (In Minutes): 35 minutes Discharge Plan Discharge Items Patient Disposition: Home - Self-Care Reason For Visit: SNYCOPE Discharge Diagnosis: Syncope with a fall, bridge of the nose injury, influenza A Condition on Discharge: Good Activity: Resume your previous activity Non-emergency contact: Primary Care Provider Call non-emergency contact if: you have any medication questions and your symptoms worsen Follow-up/Referrals: Kobi Flores MD [Primary Care Provider] - (Date & Time 05/03/2023 3:00 PM Provider Kobi Flores MD Department Merged With [facility] ) Diet: Regular and Low Sodium (2gm) Addtl Attending Provider Instructions: Please take precautions to avoid fall Finish the course of antibiotic as advised Stop taking NyQuil Can try [id number] cough medicine like Robitussin DM Please keep appointment with your PCP You will need to have a Holter monitor as an outpatient Pending Studies at Discharge: No Stand-Alone Forms: My [facility], Smoking Cessation Medications and DC Order Prescriptions: New oseltamivir [Tamiflu] 75 mg Capsule 75 mg PO BID Qty: 6 0RF Continued multivitamin Tablet 1 tab PO DAILY Vitamin D3 1 tab PO DAILY Discontinued NyQuil 7.5-60-30-1,000 mg/30 mL Liquid See Rx Instructions .ROUTE .COMPLEX PRN (Reason: Other) Rx Instructions: as directed on box Discharge Orders: Discharge Order (Routine); Ordered 04/29/23 Ordered By: Jaiden Little Admission Data Admit Date/Time: 04/27/23 09:33 Attending Provider: Jaiden Little Admit Provider: Nisha Wilder Primary Care Provider: Kobi Flores Other Providers: Jaiden Little; Nisha Wilder Other Interventions: Discharge Summary Assessment (RN) Last Done: 04/29/23 14:36
== END 2023-04-29 15:12 | disposition home or self-care (01) | DRG 193 ==
LOC: ED 06:46 → SUATTDRO 09:33 → EDINP 09:33